=== PATIENT | female | born 1985 | race American Indian/Alaskan Native ===

== ENCOUNTER 2018-01-07 08:19 | Emergency (ER) | payer MEDICAID ==
[2018-01-07 09:04] LABS: HCG Qualitative,Urine Negative (Negative)
[2018-01-07 09:06] LABS: Bilirubin,Urine NEG (Negative); Blood,Urine NEG (Negative); Color,Urine Yellow (Yellow); Mucus,Urine 3+ /HPF; RBC,Urine < 1.0 /HPF (0.0-6.0)
--- NOTE | 2018-01-07 09:34 | Emergency Department Report ---
ED Female HPI - General Chief complaint: Urogenital-Female Stated complaint: PAIN WHEN URINATE Source: patient Mode of arrival: Ambulatory Limitations: No Limitations - History of Present Illness Initial comments: This is a 32-year-old -F[place]ish female presents with dysuria, frequency, and urgency for one week. Patient reports history of frequent urinary tract infections and symptoms are similar. She complains of pressure with urination in suprapubic region along with dysuria. She denies nausea or vomiting, low back pain, incontinence, vaginal discharge or bleeding, and fever. MD Complaint: dysuria, pelvic pain Onset/Timin -: week(s) Location: suprapubic Radiation: non-radiating Severity: mild Severity scale (0 -10): 3 Quality: cramping Consistency: intermittent Improves with: none Worsens with: urination Are you Now?: No Last Menstrual Period: 12/24/17 EDC: 09/30/18 Associated Symptoms: abdominal pain (suprapubic pain), dysuria. denies: vaginal discharge, vaginal bleeding, nausea/vomiting, fever/chills, headaches, loss of appetite, hematuria, rash, seizure, shortness of breath, syncope, weakness - Related Data Sexually active: Yes Home Medications Medication Instructions Recorded Confirmed Last Taken FLUoxetine HCL [PROzac] 40 mg PO QDAY 12/14/14 12/14/14 12/13/14 20:00 Previous Rx's Medication Instructions Recorded Last Taken Type Ciprofloxacin HCl [Ciprofloxacin 500 mg PO Q12HR #10 tab 12/14/14 Unknown Rx TAB] Phenazopyridine [Pyridium] 200 mg PO Q8H #9 tab 12/14/14 Unknown Rx traMADol [Ultram 50 MG tab] 50 mg PO Q6HR PRN #12 tablet 12/14/14 Unknown Rx Allergies Allergy/AdvReac Type Severity Reaction Status Date / Time No Known Allergies Allergy Unverified 12/14/14 13:04 ED Review of Systems ROS: Stated complaint: PAIN WHEN URINATE Other details as noted in HPI Constitutional: denies: chills, fever Respiratory: denies: cough, shortness of breath, wheezing Cardiovascular: denies: chest pain, palpitations Gastrointestinal: abdominal pain. denies: nausea, diarrhea Musculoskeletal: denies: back pain, joint swelling, arthralgia, myalgia Neurological: denies: headache, weakness, paresthesias Psychiatric: denies: anxiety, depression ED Past Medical Hx - Past Medical History Previous Medical History?: No Hx Psychiatric Treatment: Yes (DEPRESSION, bipolar) - Surgical History Past Surgical History?: Yes Additional Surgical History: X 3. oral surgery to have wisdom teeth removed - Social History Smoking Status: Never Smoker Substance Use Type: None - Medications Home Medications: Home Medications Medication Instructions Recorded Confirmed Last Taken Type Ciprofloxacin HCl [Ciprofloxacin 500 mg PO Q12HR #10 tab 12/14/14 Unknown Rx TAB] FLUoxetine HCL [PROzac] 40 mg PO QDAY 12/14/14 12/14/14 12/13/14 20:00 History Phenazopyridine [Pyridium] 200 mg PO Q8H #9 tab 12/14/14 Unknown Rx traMADol [Ultram 50 MG tab] 50 mg PO Q6HR PRN #12 tablet 12/14/14 Unknown Rx ED Physical Exam - General Limitations: No Limitations General appearance: alert, in no apparent distress, obese - Respiratory Respiratory exam: Present: normal lung sounds bilaterally. Absent: respiratory distress - Cardiovascular Cardiovascular Exam: Present: regular rate, normal rhythm. Absent: systolic murmur, diastolic murmur, rubs, gallop - GI/Abdominal GI/Abdominal exam: Present: soft, tenderness (suprapubic tenderness), normal bowel sounds. Absent: distended, guarding, rebound, rigid, organomegaly, mass - Back Exam Back exam: Present: normal inspection. Absent: CVA tenderness (R), CVA tenderness (L) - Neurological Exam Neurological exam: Present: alert, oriented X3 - Psychiatric Psychiatric exam: Present: normal affect, normal mood - Skin Skin exam: Present: warm, dry, intact, normal color. Absent: rash ED Course Vital Signs 01/07/18 08:40 Temperature 98.3 F Pulse Rate 78 Respiratory 18 Rate Blood Pressure 125/64 O2 Sat by Pulse 98 Oximetry ED Medical Decision Making - Lab Data Lab Results 01/07/18 Range/Units 08:52 Urine Color Yellow (Yellow) Urine Turbidity Slightly-cloudy (Clear) Urine pH 7.0 (5.0-7.0) Ur Specific [place] 1.027 (1.003-1.030) Urine Protein 30 mg/dl (Negative) mg/dL Urine Glucose (UA) Neg (Negative) mg/dL Urine Ketones Neg (Negative) mg/dL Urine Blood Neg (Negative) Urine Nitrite Neg (Negative) Ur Reducing Substances Not Reportable Urine Bilirubin Neg (Negative) Urine Ictotest Not Reportable Urine Urobilinogen 2.0 (<2.0) mg/dL Ur Leukocyte Esterase Neg (Negative) Urine WBC (Auto) 1.0 (0.0-6.0) /HPF Urine RBC (Auto) < 1.0 (0.0-6.0) /HPF U Epithel Cells (Auto) 2.0 (0-13.0) /HPF Urine Mucus 3+ /HPF Urine HCG, Qual Negative (Negative) - Medical Decision Making Patient was examined by me in the emergency room. Vitals are normal and patient is in no acute distress. Obtained a urinalysis and urine hCG. All labs within normal limits. Patient informed of results. Referral to urology and FOOD SERVICE ORDER CLERK for continuos of care. Plan discussed with patient to discharge home and follow up plan. Patient discharged home in stable condition. Follow up with PCP in 2-3 days. Critical care attestation.: If time is entered above; I have spent that time in minutes in the direct care of this critically ill patient, excluding procedure time. ED Disposition Clinical Impression: UTI symptoms, Dysuria Disposition: DC-01 TO HOME OR SELFCARE Is pt being admited?: No Does the pt Need Aspirin: No Condition: Stable Instructions: Dysuria (ED) Additional Instructions: Increase fluid intake to 1L to 2L daily. Follow-up with urologist and FOOD SERVICE ORDER CLERK for further evaluation. Follow up with primary care provider in 2-3 days. Referrals: RAMIRO MEADE MD [Staff Physician] - 3-5 Days [facility] [Provider Group] - 3-5 Days [facility] [Provider Group] - 3-5 Days Time of Disposition: 10:06 Print Language: TURKMEN
[2018-01-07 10:15] VITALS: BP 122/74
== END 2018-01-07 10:12 | disposition home or self-care (01) ==
LOC: ED 08:19
DX: N39.0 Urinary tract infection, site not specified (principal); F31.9 Bipolar disorder, unspecified
CPT/HCPCS: 81001; 81025; 99283

== ENCOUNTER 2018-01-12 09:22 | Emergency (ER) | payer MEDICAID ==
--- NOTE | 2018-01-12 11:08 | Emergency Department Report ---
Eye Injury/Foreign Body - HPI Duration: 2 Days Eye Location: Left Severity: None Tetanus Status: Up to Date Eye Symptoms: Eye Pain: No, Blurred Vision: No, Eye Redness: No, Grinding/ Hammering Metal: No, Used Eye Protection: No, Contact Lens Use: No, Recalls Injury: No, Photophobia: No Other History: This is a 32-year-old female here report that she has left eye drainage with irritation. Denies any injury. Denies any pain. She reports that she thinks it has allergies to this extent. Denies any nasal congestion or runny nose that has any cough or shortness of breath. Denies any change in her vision. Tetanus vaccine is up-to-date ED Review of Systems ROS: Stated complaint: LFT EYE DRAINING AND IRRITATION Other details as noted in HPI Constitutional: denies: chills, fever Eyes: eye discharge, other. denies: eye pain, vision change ENT: denies: ear pain, throat pain, congestion Respiratory: denies: cough, shortness of breath, SOB with exertion, wheezing Cardiovascular: denies: chest pain, palpitations, edema, syncope Gastrointestinal: denies: diarrhea Genitourinary: denies: urgency, dysuria, discharge Musculoskeletal: denies: back pain, joint swelling, arthralgia Skin: denies: rash, lesions ED Past Medical Hx - Past Medical History Previous Medical History?: Yes Hx Psychiatric Treatment: Yes (DEPRESSION, bipolar) - Surgical History Past Surgical History?: Yes Additional Surgical History: X 3. oral surgery to have wisdom teeth removed - Family History Family history: hypertension - Social History Smoking Status: Never Smoker Substance Use Type: None - Medications Home Medications: Home Medications Medication Instructions Recorded Confirmed Last Taken Type Ciprofloxacin HCl [Ciprofloxacin 500 mg PO Q12HR #10 tab 12/14/14 Unknown Rx TAB] FLUoxetine HCL [PROzac] 40 mg PO QDAY 12/14/14 12/14/14 12/13/14 20:00 History Phenazopyridine [Pyridium] 200 mg PO Q8H #9 tab 12/14/14 Unknown Rx traMADol [Ultram 50 MG tab] 50 mg PO Q6HR PRN #12 tablet 12/14/14 Unknown Rx Cetirizine HCl [ZyrTEC] 10 mg PO QAM 30 Days #30 capsule 01/12/18 Unknown Rx Ketotifen Fumarate [Zaditor] 5 ml OS TID PRN #2 drops 01/12/18 Unknown Rx Eye Injury Exam - Exam General: Vital signs noted. No distress. Alert and acting appropriately. This is a 32-year-old female well-nourished well-developed in no acute distress. - Visual Acuity Left Vision Acuity Degree: 20/13 Eye Exam: Left Mucous Discharge (minimal with allergic shiner), Both EOMI, Neither Injection, Neither Chemosis, Neither Abnormal Pupil, Neither Eye Foreign Body, Neither Lid Foreign Body, Neither Purulent Discharge, Neither Corneal Edema, Neither Photophobia Right Vision Acuity Degree: 20/13 Eye Exam: Left Chemosis, Both Abnormal Pupil, Neither Injection, Neither EOMI, Neither Eye Foreign Body, Neither Mucous Discharge, Neither Purulent Discharge, Neither Photophobia Bilateral Vision Acuity Degree: 20/13 Eye Exam: Both EOMI, Neither Injection, Neither Chemosis, Neither Abnormal Pupil , Neither Eye Foreign Body, Neither Lid Foreign Body, Neither Mucous Discharge, Neither Purulent Discharge, Neither Fluorescein Uptake, Neither Fluorescein Uptake (slit lamp), Neither Cell/Flare (slit lamp), Neither Corneal Edema, Neither Photophobia Exam: Funduscopic exam normal ED Course Vital Signs 01/12/18 09:39 Temperature 99.3 F Pulse Rate 73 Respiratory 16 Rate Blood Pressure 100/62 O2 Sat by Pulse 97 Oximetry - Reevaluation(s) Reevaluation #1: 01/12/18 11:45 Patient stable throughout ED course. ED Medical Decision Making - Medical Decision Making This is a 32-year-old female here with her son also has complaints. She is here for left eye itching in an irritation. Assessment/plan Allergic conjunctivitis left eye-she will be discharged home on Zyrtec and Zaditor and to follow-up with eye doctor in 2 days. She will acuity 2013 right eye, left eye and both eyes. Because the patient her diagnosis, treatment plan and need to follow up with mortgage counselor for further evaluation. I discussed with her that she if she wears contacts she needs to not wear until her eye symptoms are relieved and she voiced understanding . She discharged home with prescription for Zaditor and Zyrtec. - Differential Diagnosis allergic vs bacterial vs viral conjunctivitis, corneal abrasion Critical care attestation.: If time is entered above; I have spent that time in minutes in the direct care of this critically ill patient, excluding procedure time. ED Disposition Clinical Impression: Allergic conjunctivitis Qualifiers: Laterality: left Qualified Code(s): H10.12 - Acute atopic conjunctivitis, left eye Disposition: - TO HOME OR SELFCARE Is pt being admited?: No Does the pt Need Aspirin: No Condition: Stable Instructions: Conjunctivitis (ED) Additional Instructions: Please follow up with mortgage counselor as instructed Take medication as prescribed Prescriptions: Cetirizine HCl [ZyrTEC] 10 mg PO QAM 30 Days #30 capsule Ketotifen Fumarate [Zaditor] 5 ml OS TID PRN #2 drops PRN Reason: Allergy Symptoms Referrals: PRIMARY CARE, [Primary Care Provider] - 2-3 Days ANGELES SELF MD [Staff Physician] - 01/14/18 Forms: Work/School Release Form(ED)
[2018-01-12 14:01] VITALS: BP 106/64
== END 2018-01-12 14:00 | disposition home or self-care (01) ==
LOC: ED 09:22
DX: H10.12 Acute atopic conjunctivitis, left eye (principal); F31.9 Bipolar disorder, unspecified
CPT/HCPCS: 99282

== ENCOUNTER 2018-11-10 17:59 | Emergency (ER) | payer MEDICAID ==
[2018-11-10 19:20] VITALS: BP 111/65
[2018-11-10] MEDS ORDERED: TYLENOL PO ONE ×2 (19:22)
[2018-11-10 20:36] LABS: Basophils # (Auto) 0.1 K/mm3 (0.0-0.1); Eosinophils # (Auto) 0.1 K/mm3 (0.0-0.4); Eosinophils % (Auto) 1.7 % (0.0-4.3); Hematocrit 38.4 % (30.3-42.9); Hemoglobin 12.8 gm/dl (10.1-14.3); Lymphocytes # (Auto) 1.1 K/mm3 (1.2-5.4); Lymphocytes % (Auto) 20.7 % (13.4-35.0); Mean Corpuscular HGB Conc 34 % (30-34); Mean Corpuscular Volume 96 fl (79-97); Monocytes # (Auto) 0.3 K/mm3 (0.0-0.8); Monocytes % (Auto) 6.4 % (0.0-7.3); Platelet Count 204 K/mm3 (140-440); Red Blood Count 3.99 M/mm3 (3.65-5.03); Red Cell Distribution Width 13.4 % (13.2-15.2)
[2018-11-10] MEDS ORDERED: NACL 0.9% 1000 ML 2,000 ML IV ONE (20:36)
[2018-11-10 20:57] LABS: BUN/Creatinine Ratio 11; Blood Urea Nitrogen 8 mg/dL (7-17); Calcium 7.8 mg/dL (8.4-10.2); Hemolysis Index 5
--- NOTE | 2018-11-10 22:10 | XRay Report ---
CHEST 2 VIEWS INDICATION: fever. COMPARISON: none FINDINGS: Support devices: None. Heart: Within normal limits. Lungs: No acute air space or interstitial disease. Pleura: No significant pleural effusion. No pneumothorax. Additional findings: None. IMPRESSION: 1. No acute findings. Signer Name: Bret Ribeiro MD Signed: 11/10/2018 10:06 PM Workstation Name: [id number]
--- NOTE | 2018-11-10 22:43 | Emergency Department Report ---
ED Fever HPI - General Chief Complaint: Syncope Stated Complaint: SYNCOPE Time Seen by Provider: 11/10/18 20:27 Source: patient - History of Present Illness Initial Comments: Patient reports that she had some irritation over her left eyelid and was planning on coming to the ER. Reports that while at the bus stop she felt febrile and experienced a syncopal episode. Reports that she did take ibuprofen at home for fever which did resolve her fever symptoms. Denies sick contacts. Denies travel. Denies bug bite/tick bite. Timing/Duration: just prior to arrival Fever Severity/Quality: subjective Fever Therapy DISPATCHER RELAY: Ibuprofen Associated Symptoms: syncope. denies: abdominal pain, chest pain, confusion, cough, diaphoresis, headache, muscle aches, nausea/vomiting, rash, shortness of breath, sore throat, stiff neck, weakness ED Review of Systems ROS: Stated complaint: SYNCOPE Other details as noted in HPI Other: GENERAL: Fever. No weight change, fatigue, weakness, chills, or night sweats SKIN: No changes in skin or hair, no itching, no rashes, no jaundice HEAD: No trauma, headache, or visual changes EYES: Left upper eye lid irritation. No blurriness, tearing, itching, acute visual loss, conjunctival discoloration, or scleral icterus EARS: No hearing loss, tinnitus, vertigo, or earache NOSE: No rhinorrhea, stuffiness, sneezing, itching, or epistaxis MOUTH: No bleeding gums, hoarseness, sore throat, or swelling CARDIAC: Syncope. No new murmur, chest pain, palpitations, dyspnea on exertion, orthopnea, PND, or edema RESPIRATORY: No shortness of breath, wheeze, cough, sputum production, hemoptysis, pneumonia, asthma, bronchitis, or emphysema GI: No change in appetite, nausea, vomiting, dysphagia, change in bowel frequency, diarrhea, constipation, bleeding, hematemesis, melena, hematochezia, or abdominal pain URINARY: No frequency, urgency, polyuria, dysuria, hematuria, or incontinence GENITAL: Female: No change in menstrual regularity, no frequency or dysmenorrhea MUSCULOSKELETAL: No muscle weakness, joint stiffness, decrease in range of motion, redness, swelling NEUROLOGIC: No loss of sensation, numbness, tingling, tremors, weakness, paralysis, seizures HEMATOLOGIC: No anemia, easy bruising, bleeding, petechiae, or purpura ENDOCRINE: No hot or cold intolerance, sweating, polyuria, polydipsia or, polyphagia no thyroid problems PSYCHIATRIC: No change in mood, no anxiety, no depression ED Past Medical Hx - Past Medical History Previous Medical History?: Yes Hx Psychiatric Treatment: Yes (DEPRESSION, bipolar) - Surgical History Past Surgical History?: No Hx Breast Surgery: Yes (reduction) Additional Surgical History: X 3. oral surgery to have wisdom teeth removed - Social History Smoking Status: Never Smoker - Medications Home Medications: Home Medications Medication Instructions Recorded Confirmed Last Taken Type Ciprofloxacin HCl [Ciprofloxacin 500 mg PO Q12HR #10 tab 12/14/14 Unknown Rx TAB] FLUoxetine HCL [PROzac] 40 mg PO QDAY 12/14/14 12/14/14 12/13/14 20:00 History Phenazopyridine [Pyridium] 200 mg PO Q8H #9 tab 12/14/14 Unknown Rx traMADol [Ultram 50 MG tab] 50 mg PO Q6HR PRN #12 tablet 12/14/14 Unknown Rx Cetirizine HCl [ZyrTEC] 10 mg PO QAM 30 Days #30 capsule 01/12/18 Unknown Rx Ketotifen Fumarate [Zaditor] 5 ml OS TID PRN #2 drops 01/12/18 Unknown Rx Ibuprofen [Motrin] 600 mg PO Q8H PRN #16 tablet 11/11/18 Unknown Rx ED Physical Exam - General Limitations: No Limitations - Other Other exam information: GENERAL: Patient in no acute distress HEAD: Normocephalic, atraumatic EYES: Left upper eye lid stye no pus no drainage. PERRLA, EOM intact, no scleral icterus, no papilledema, no conjunctival hemorrhage, visual [place] and acuity wnl EARS: No tenderness, discharge, tympanic membrane wnl NOSE: No tenderness, discharge, sinus tenderness MOUTH: No erythema, bleeding, exudate HEART: Regular rate and rhythm, no murmur, S1-S2 are auscultated, pulses are symmetric LUNGS: No wheezing, rales, rhonchi, bilateral breath sounds ABDOMEN: Normal bowel sounds, no tenderness, no rebound, no guarding, no masses, no CVA tenderness MUSCULOSKELETAL: Normal joint range of motion, no redness, no swelling, no tenderness NEUROLOGIC: GCS 15, Alert and Oriented x3, Cranial nerves intact, normal sensation, normal strength, normal gait, no cerebellar deficit PSYCHIATRIC: No homicidal or suicidal ideation, no anxiety, no depression, no hallucinations SKIN: Skin is warm and dry, no wounds, no rashes ED Course Vital Signs 11/10/18 11/10/18 19:15 21:22 Temperature 102.4 F H 100 F H Pulse Rate 117 H 105 H Respiratory 18 18 Rate Blood Pressure 111/65 O2 Sat by Pulse 98 99 Oximetry ED Medical Decision Making - Lab Data Result diagrams: 11/10/18 20:14 11/10/18 20:14 Laboratory Results - last 24 hr 11/10/18 11/10/18 11/10/18 20:14 20:14 20:56 WBC 5.4 RBC 3.99 Hgb 12.8 Hct 38.4 MCV 96 MCH 32 MCHC 34 RDW 13.4 Plt Count 204 Lymph % (Auto) 20.7 [place] % (Auto) 6.4 Eos % (Auto) 1.7 Baso % (Auto) 1.0 Lymph # 1.1 L [place] # 0.3 Eos # 0.1 Baso # 0.1 Seg Neutrophils % 70.2 H Seg Neutrophils # 3.8 Sodium 138 Potassium 3.7 Chloride 104.8 Carbon Dioxide 23 Anion Gap 14 BUN 8 Creatinine 0.7 Estimated GFR > 60 BUN/Creatinine Ratio 11 Glucose 108 H Calcium 7.8 L Total Creatine Kinase 121 Troponin T < 0.010 Urine Color Urine Turbidity Urine pH Ur Specific [place] Urine Protein Urine Glucose (UA) Urine Ketones Urine Blood Urine Nitrite Urine Bilirubin Urine Urobilinogen Ur Leukocyte Esterase Urine WBC (Auto) Urine RBC (Auto) U Epithel Cells (Auto) Urine Bacteria (Auto) Urine HCG, Qual Urine Opiates Screen Urine Methadone Screen Ur Barbiturates Screen Ur Phencyclidine Scrn Ur Amphetamines Screen U Benzodiazepines Scrn Urine Cocaine Screen U Marijuana (THC) Screen Drugs of Abuse Note 11/10/18 11/10/18 11/10/18 22:43 22:43 22:43 WBC RBC Hgb Hct MCV MCH MCHC RDW Plt Count Lymph % (Auto) [place] % (Auto) Eos % (Auto) Baso % (Auto) Lymph # [place] # Eos # Baso # Seg Neutrophils % Seg Neutrophils # Sodium Potassium Chloride Carbon Dioxide Anion Gap BUN Creatinine Estimated GFR BUN/Creatinine Ratio Glucose Calcium Total Creatine Kinase Troponin T Urine Color Straw Urine Turbidity Clear Urine pH 5.0 Ur Specific [place] 1.006 Urine Protein <15 mg/dl Urine Glucose (UA) Neg Urine Ketones Neg Urine Blood Neg Urine Nitrite Neg Urine Bilirubin Neg Urine Urobilinogen < 2.0 Ur Leukocyte Esterase Neg Urine WBC (Auto) < 1.0 Urine RBC (Auto) 1.0 U Epithel Cells (Auto) 3.0 Urine Bacteria (Auto) Negative Urine HCG, Qual Negative Urine Opiates Screen Presumptive negative Urine Methadone Screen Presumptive negative Ur Barbiturates Screen Presumptive negative Ur Phencyclidine Scrn Presumptive negative Ur Amphetamines Screen Presumptive negative U Benzodiazepines Scrn Presumptive negative Urine Cocaine Screen Presumptive negative U Marijuana (THC) Screen Presumptive positive Drugs of Abuse Note Disclamer - EKG Data When compared to previous EKG there are: no significant change - Radiology Data Radiology results: report reviewed - Medical Decision Making At [facility] patient comfortable. Plan discharge with outpatient follow up. Return if any worsening. Critical care attestation.: If time is entered above; I have spent that time in minutes in the direct care of this critically ill patient, excluding procedure time. ED Disposition Clinical Impression: Fever Qualifiers: Fever type: unspecified Qualified Code(s): R50.9 - Fever, unspecified Heat exhaustion Qualifiers: Encounter type: initial encounter Qualified Code(s): T67.5XXA - Heat exhaustion, unspecified, initial encounter Syncope Qualifiers: Syncope type: heat syncope Encounter type: initial encounter Qualified Code(s): T67.1XXA - Heat syncope, initial encounter Disposition: TO HOME OR SELFCARE Is pt being admited?: No Condition: Stable Instructions: Heat Exhaustion (ED), Fever in Adults (ED), Syncope (ED) Prescriptions: Ibuprofen [Motrin] 600 mg PO Q8H PRN #16 tablet PRN Reason: Fever >101 Referrals: PRIMARY CAREMD [Primary Care Provider] - 2-3 Days PAMELA ALVAREZ MD [Staff Physician] - 2-3 Days Time of Disposition: 00:51
[2018-11-10 23:39] LABS: Bilirubin,Urine NEG (Negative); Blood,Urine NEG (Negative); Color,Urine Straw (Yellow); Protein,Urine <15 mg/dL mg/dL (Negative); Urobilinogen,Urine < 2.0 mg/dL (<2.0); WBC,Urine < 1.0 /HPF (0.0-6.0)
[2018-11-10 23:41] LABS: HCG Qualitative,Urine Negative (Negative)
[2018-11-10 23:52] LABS: Amphetamine Screen,Urine PRESUMPTIVE NEGATIVE; Benzodiazepines Screen,Urine PRESUMPTIVE NEGATIVE; Cocaine Screen,Urine PRESUMPTIVE NEGATIVE; Methadone Screen,Urine PRESUMPTIVE NEGATIVE; Opiate Screen,Urine PRESUMPTIVE NEGATIVE
[2018-11-10 23:58] LABS: Bacteria,Urine Negative /HPF (Negative)
[2018-11-11 00:04] LABS: Cannabinoid Screen,Urine PRESUMPTIVE POSITIVE
== END 2018-11-11 01:20 | disposition home or self-care (01) ==
LOC: ED 17:59
DX: T67.5XXA Heat exhaustion, unspecified, initial encounter (principal); R55 Syncope and collapse; R50.9 Fever, unspecified; F31.9 Bipolar disorder, unspecified; Z98.890 Other specified postprocedural states; Z79.899 Other long term (current) drug therapy; X58.XXXA Exposure to other specified factors, initial encounter; Y93.89 Activity, other specified; Y92.89 Other specified places as the place of occurrence of the external cause; Y99.8 Other external cause status
CPT/HCPCS: 36415; 71046; 80048; 80307; 81001; 81025; 82550; 84484; 85025; 87086; 93005; 93010; 99285; J7030

== ENCOUNTER 2020-10-09 13:50 | Emergency (ER) | payer MEDICAID ==
[2020-10-09 14:01] VITALS: BP 126/74
[2020-10-09 14:58] LABS: Basophils # (Auto) 0.1 K/mm3 (0.0-0.1); Basophils % (Auto) 0.8 % (0.0-1.8); Eosinophils # (Auto) 0.1 K/mm3 (0.0-0.4); Eosinophils % (Auto) 1.5 % (0.0-4.3); Hematocrit 38.1 % (30.3-42.9); Hemoglobin 12.5 gm/dl (10.1-14.3); Lymphocytes # (Auto) 2.1 K/mm3 (1.2-5.4); Lymphocytes % (Auto) 26.7 % (13.4-35.0); Mean Corpuscular HGB Conc 33 % (30-34); Mean Corpuscular Volume 97 fl (79-97); Monocytes # (Auto) 0.3 K/mm3 (0.0-0.8); Monocytes % (Auto) 4.3 % (0.0-7.3); Platelet Count 309 K/mm3 (140-440); Red Blood Count 3.94 M/mm3 (3.65-5.03)
[2020-10-09 15:20] LABS: Alanine Aminotransferase 16 units/L (7-56); Albumin 3.5 g/dL (3.9-5); Blood Urea Nitrogen 7 mg/dL (7-17); Calcium 8.7 mg/dL (8.4-10.2); Hemolysis Index 5
[2020-10-09 15:22] LABS: BUN/Creatinine Ratio 10
== END 2020-10-09 16:26 | disposition left against medical advice (07) ==
LOC: ED 13:50
DX: Z53.21 Procedure and treatment not carried out due to patient leaving prior to being seen by health care provider (principal)
CPT/HCPCS: 36415; 80053; 80320; 84703; 85025; G0480

== ENCOUNTER 2021-05-28 21:22 | Emergency (ER) | payer MEDICAID ==
[2021-05-29 04:40] LABS: Basophils % (Auto) 0.4 % (0.0-1.8); Eosinophils # (Auto) 0.2 K/mm3 (0.0-0.4); Eosinophils % (Auto) 1.6 % (0.0-4.3); Hematocrit 39.6 % (30.3-42.9); Lymphocytes # (Auto) 3.2 K/mm3 (1.2-5.4); Lymphocytes % (Auto) 28.6 % (13.4-35.0); Mean Corpuscular HGB Conc 33 % (30-34); Mean Corpuscular Volume 96 fl (79-97); Monocytes # (Auto) 0.6 K/mm3 (0.0-0.8); Monocytes % (Auto) 5.5 % (0.0-7.3); Platelet Count 324 K/mm3 (140-440); Red Blood Count 4.11 M/mm3 (3.65-5.03); Red Cell Distribution Width 14.8 % (13.2-15.2)
[2021-05-29 04:57] LABS: Blood Urea Nitrogen 7 mg/dL (7-17); Calcium 8.8 mg/dL (8.4-10.2); Hemolysis Index 3
[2021-05-29 04:59] LABS: BUN/Creatinine Ratio 12
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
--- NOTE | 2021-05-29 08:09 | Ultrasound Report ---
ULTRASOUND PELVIS INDICATION: . TECHNIQUE: Transabdominal. Duplex Color Doppler used: Yes. COMPARISON: None available FINDINGS: Uterus: Present. Size: 9.7 x 8.2 x 6.8 cm. Endometrial complex: Early gestational sac dated 5 weeks 3 days by ultrasound. No pole or yolk sac at this time. Mass lesions: Fibroid left uterine body measuring 5.1 cm in the maximum dimension. Additional findings: None. Right Ovary -- 2.1 x 1.2 x 2.6 cm. Blood flow: Normal. Cyst or mass: 1.3 cm cyst. Left Ovary-- 3.6 x 2.8 x 4.1 cm. Blood flow: Normal. Cyst or mass: 2.3 cm complex cyst. Urinary Bladder: Normal. Free Fluid: None. Additional Findings: None. IMPRESSION: 1. Early gestational sac with no pole or yolk sac. 2. Uterine fibroid. 3. Small complex cyst left ovary is likely physiologic. Signer Name: Patricio Bland MD Signed: 05/29/2021 8:05 AM Workstation Name: [id number]
[2021-05-29] MEDS ORDERED: diphenhydrAMINE 25 MG CAP PO PRN (09:23)
[2021-05-29] MEDS ORDERED: ACETAMINOPHEN 325 MG TAB PO PRN (09:23)
[2021-05-29 09:46] LABS: Bacteria,Urine 1+ /HPF (Negative); Mucus,Urine FEW /HPF
[2021-05-29 09:47] LABS: Bilirubin,Urine NEG (Negative); Blood,Urine NEG (Negative); Color,Urine Yellow (Yellow); Protein,Urine <15 mg/dL mg/dL (Negative); Urobilinogen,Urine < 2.0 mg/dL (<2.0)
[2021-05-29 09:56] LABS: Amphetamine Screen,Urine Negative; Benzodiazepines Screen,Urine Negative; Cocaine Screen,Urine Negative; Methadone Screen,Urine Negative; Opiate Screen,Urine Negative
[2021-05-29] MEDS ORDERED: PYRIDOXINE 50 MG TAB PO SCH (10:00)
[2021-05-29] MEDS ORDERED: PRENATAL VIT27-FE FUMARATE-FOLIC ACID VIT TAB PO SCH (10:00)
[2021-05-29 10:10] LABS: Cannabinoid Screen,Urine Positive
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
[2021-05-29 12:41] VITALS: BP 122/64
== END 2021-05-29 13:36 | disposition home or self-care (01) ==
LOC: ED 21:22
DX: O26.899 Other specified pregnancy related conditions, unspecified trimester (principal); Z13.30 Encounter for screening examination for mental health and behavioral disorders, unspecified; Z59.00 Homelessness unspecified; Z00.00 Encounter for general adult medical examination without abnormal findings; Z20.822 Contact with and (suspected) exposure to COVID-19; Z3A.00 Weeks of gestation of pregnancy not specified
CPT/HCPCS: 36415; 76801; 80048; 80307; 81001; 84702; 84703; 85025; 86850; 86900; 86901; 99284; U0003; 80320; G0480

== ENCOUNTER 2021-09-30 18:33 | Emergency (ER) | payer MEDICAID ==
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
[2021-09-30 21:13] LABS: Amphetamine Screen,Urine PRESUMPTIVE NEGATIVE; Benzodiazepines Screen,Urine PRESUMPTIVE NEGATIVE; Cannabinoid Screen,Urine PRESUMPTIVE POSITIVE; Cocaine Screen,Urine PRESUMPTIVE NEGATIVE; Methadone Screen,Urine PRESUMPTIVE NEGATIVE; Opiate Screen,Urine PRESUMPTIVE NEGATIVE
[2021-09-30 21:30] LABS: Basophils # (Auto) 0.1 K/mm3 (0.0-0.1); Basophils % (Auto) 0.9 % (0.0-1.8); Eosinophils # (Auto) 0.1 K/mm3 (0.0-0.4); Eosinophils % (Auto) 1.1 % (0.0-4.3); Hematocrit 39.4 % (30.3-42.9); Lymphocytes # (Auto) 3.2 K/mm3 (1.2-5.4); Lymphocytes % (Auto) 29.9 % (13.4-35.0); Mean Corpuscular HGB Conc 33 % (30-34); Mean Corpuscular Volume 96 fl (79-97); Monocytes # (Auto) 0.5 K/mm3 (0.0-0.8); Platelet Count 320 K/mm3 (140-440); Red Blood Count 4.09 M/mm3 (3.65-5.03); Red Cell Distribution Width 14.3 % (13.2-15.2)
[2021-09-30 21:38] LABS: Mucus,Urine 3+ /HPF
[2021-09-30 21:43] LABS: Bilirubin,Urine NEG (Negative); Color,Urine Yellow (Yellow)
[2021-09-30 21:44] LABS: Blood,Urine Small (Negative); Urobilinogen,Urine < 2.0 mg/dL (<2.0)
[2021-09-30 21:48] LABS: Blood Urea Nitrogen 7 mg/dL (7-17); Calcium 9.3 mg/dL (8.4-10.2); Hemolysis Index 10
[2021-09-30 22:04] LABS: BUN/Creatinine Ratio 10
[2021-10-01] MEDS ORDERED: ACETAMINOPHEN 500 MG TAB PO ONE (01:08)
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
[2021-10-01] MEDS: DIVALPROEX DR 125 MG TAB PO SCH ×2 (12:35→22:11)
[2021-10-01] MEDS: hydrOXYzine PAMOATE 25 MG CAP PO PRN ×2 (12:36→22:14)
--- NOTE | 2021-10-01 13:58 | Emergency Department Report ---
Blank Doc - Documentation Documentation: S: No events reported overnight O: Vital Signs - 8 hr 10/01/21 10/01/21 10:54 14:06 Temperature 97.6 F Pulse Rate 73 Respiratory 20 Rate Blood Pressure 106/52 [Left] O2 Sat by Pulse 99 98 Oximetry E: Bipolar disorder P: 1013/awaiting inpatient psych
[2021-10-01] MEDS: levoFLOXacin 500 MG TAB PO SCH (18:49)
[2021-10-01] MEDS ORDERED: DOXEPIN 10 MG CAP PO SCH (22:00)
[2021-10-02] MEDS: DIVALPROEX DR 125 MG TAB PO SCH (10:32)
[2021-10-02] MEDS: levoFLOXacin 500 MG TAB PO SCH (10:32)
[2021-10-02] MEDS: hydrOXYzine PAMOATE 25 MG CAP PO PRN (10:32)
--- NOTE | 2021-10-02 12:04 | Emergency Department Report ---
Blank Doc - Documentation Documentation: S: No events reported overnight O: Vital Signs 09/30/21 09/30/21 10/01/21 18:38 20:27 10:54 Temperature 98.5 F 98.4 F Pulse Rate 86 76 Respiratory 18 16 Rate Blood Pressure 122/68 Blood Pressure 130/80 [Left] O2 Sat by Pulse 100 98 99 Oximetry 10/01/21 10/02/21 10/02/21 14:06 12:16 12:17 Temperature 97.6 F 98.4 F Pulse Rate 73 78 Respiratory 20 18 Rate Blood Pressure Blood Pressure 106/52 106/74 [Left] O2 Sat by Pulse 98 98 98 Oximetry E: Bipolar disorder P: DC'd by psych
[2021-10-02 12:17] VITALS: BP 106/74
--- NOTE | 2021-10-02 12:36 | Progress Note ---
Subjective - Reason for Consult Consult date: 10/02/21 Reason for consult: SI - Chief Complaint Chief complaint: The patient was seen today. She is now saying today that she feels better. She denies SI/HI. The patient says "I have bills and responsibilities I need to take care of." I ask the patient what changed between yesterday and today. She says "I just have ups and downs. I'm no longer thinking about hurting myself. I have responsibilities." The patient denies hallucinations of any kind. REVIEW OF SYSTEMS Constitutional: Negative for weight loss ENT: Negative for stridor Respiratory: Negative for cough or hemoptysis All other systems reviewed and are negative MENTAL STATUS EXAMINATION General Appearance and Behavior: Age appropriate, good hygiene, wearing appropriate clothes, good eye contact, cooperative polite with questioning. Cooperation: Participating Psychomotor Behavior: Normal Mood: Better Affect and affective range: congruent with mood Thought Process: goal directed Thought Content: None Speech: Normal volume, Regular rate and rhythm Suicidal Ideation: Denies Homicidal Ideation: Denies Hallucinations: Denies Delusions: None elicited Impulse Control: Limited Insight and Judgment: Limited insight and judgment Memory: Normal Attention: attentive Orientation: Alert, oriented Assessment and Plan (1) Bipolar Disorder RECOMMENDATIONS d/c 1013 d/c Vistaril 25mg po q6h prn anxiety Depakote DR 125mg po BID Doxepin 10mg po qhs Medical: per primary Sitter: defer to primary Disposition: Do not recommend acute psychiatric inpatient treatment. The patient understands that if SI/HI arise she is to seek immediate assistance. The solar sales representative and assessor to further discuss safety plan and give the patient all necessary outpatient resources. The patient to follow up with outpatient psych in 7 to 14 days upon discharge Will sign off. Thanks. Case staffed with Dr. Quintero Mental Status Exam - Vital signs Last Vital Signs Temp 98.4 F 10/02/21 12:16 Pulse 78 10/02/21 12:16 Resp 18 10/02/21 12:16 BP 106/74 10/02/21 12:16 Pulse Ox 98 10/02/21 12:17
== END 2021-10-02 14:06 | disposition home or self-care (01) ==
LOC: EEVIPCON 18:33 → ED 18:33
DX: R45.851 Suicidal ideations (principal); F32.9 Major depressive disorder, single episode, unspecified; Z20.822 Contact with and (suspected) exposure to COVID-19; Z98.890 Other specified postprocedural states
CPT/HCPCS: 36415; 80048; 80307; 81001; 84702; 85025; 87086; 99284; U0003; 80320; G0480